=== PATIENT | male | born 1990 ===

== ENCOUNTER 2018-11-01 09:44 | Day surgery (SDC) | payer OTHER ==
[2018-11-01] VITALS (8 sets, daily range): BP systolic 106–140; BP diastolic 54–73
[~2018-11-01] VITALS: Ht 170.2 cm; Wt 89.1 kg
[~2018-11-01 09:44] MED LIST: NO HOME MEDS; sevoflurane 250ml liquid IH ONE
[2018-11-01] MEDS ORDERED: ceFAZolin 1GM/D5W- ADD-VANTAGE 50 ML IV ONE (11:15)
[2018-11-01] MEDS ORDERED: famotidine 20mg tablet PO ONE (11:15)
[2018-11-01] MEDS ORDERED: ringers solution, lacted 1,000 ML IV SCH ×2 (11:15→14:46)
[2018-11-01] MEDS ORDERED: ROPIVAcaine 0.5% (5mg/ml) 30ml vial ONE (14:11)
[2018-11-01] MEDS ORDERED: propofol inj 20 ML IV ONE (14:13)
[2018-11-01] MEDS ORDERED: meperidine/PF 50mg/ml syringe ONE (14:13)
[2018-11-01] MEDS ORDERED: LIDOcaine 1%/PF 5ML 10 MG/ML VIAL ONE (14:14)
[2018-11-01] MEDS ORDERED: dexamethasone sod phosphate 4mg/ml inj. ONE (14:30)
[2018-11-01] MEDS ORDERED: ceFAZolin 1000mg inj ONE (14:34)
[2018-11-01] MEDS ORDERED: ondansetron/PF 4mg/2ml inj IV PRN (14:50)
[2018-11-01] MEDS ORDERED: hydrALAZINE 20mg/ml inj. IV PRN (14:50)
[2018-11-01] MEDS ORDERED: labetalol 20mg/4ml (5mg/ml) syringe IV PRN (14:50)
[2018-11-01] MEDS ORDERED: fentaNYL/PF 50MCG/1 ML 2ML syringe IV PRN ×2 (14:50)
[2018-11-01] MEDS ORDERED: morphine 4 MG/ML inj SYRINge IV PRN ×2 (14:50)
--- NOTE | 2018-11-01 15:15 | NUR ---
Received from OR via BED , accompanied by Anesthesiologist and report given by Anesthesiolgist. PATIENT WAKING UP, DENIES PAIN, V/S WNL, NEUROVASCULAR CHECKS INTACT, 20G PIV LUE , SPLINT DRESSING TO RIGHT WRIST THUMB CDI, 2 GUARDS AT BED SIDE
--- NOTE | 2018-11-01 16:15 | NUR ---
PATIENT A&OX4, DENIES PAIN, V/S WNL, NEUROVASCULAR CHECKS INTACT, 20G PIV LUE D/C , SPLINT DRESSING TO RIGHT WRIST THUMB CDI, 2 GUARDS AT BED SIDE WHO TRANSPORTED PATIENT HOME. D/C PAPERWORK AND ALL BELONGINGS GIVEN TO GUARDS.
== END 2018-11-01 16:15 ==
LOC: PAS 09:44 → EEVIPCON 13:15 → PAS 16:15
PROVIDERS: ATTEND Orthopaedic Surgery
DX: S62.291A Other fracture of first metacarpal bone, right hand, initial encounter for closed fracture (principal); X58.XXXA Exposure to other specified factors, initial encounter; Z87.891 Personal history of nicotine dependence; Y93.89 Activity, other specified
CPT/HCPCS: 26608; C1713; J0690; J1100; J2001; J2175; J2270; J2704; A6449; J2795; J7120